=== PATIENT | female | born 1955 | race Two or more races ===

== ENCOUNTER → 2024-07-14 09:29 | Outpatient (CLI) | payer OTHER ==
[~2024-07-14 09:29] MED LIST: AMARIL; FOSAMAX5 MG; HYZAAR 100-121 UDTAB; SINGULAIR5 MG; [UNRECOGNIZED DRUG - OTHER]
== END | disposition home or self-care (01) ==
LOC: NUCLEAR 09:29
PROVIDERS: ATTEND Psychiatry & Neurology Neurology
DX: G30.1 Alzheimer's disease with late onset (principal)
CPT/HCPCS: 78803; A9557